=== PATIENT | female | born 1995 | race Hispanic/Latino ===

== ENCOUNTER 2019-12-11 10:20 | Observation (INO) | payer MEDICAID ==
[~2019-12-11] VITALS: Ht 147.3 cm; Wt 81.2 kg
[2019-12-11 12:23] LABS: ALBUMIN 2.5 g/dL (3.5-5.0); BILIRUBIN,DIRECT 0.1 mg/dL (0.0-0.3); BILIRUBIN,TOTAL 0.3 mg/dL (0.2-1.0)
== END 2019-12-11 12:40 | disposition home or self-care (01) ==
LOC: LDH 10:20
DX: O26.613 Liver and biliary tract disorders in pregnancy, third trimester (principal); K83.1 Obstruction of bile duct; Z88.0 Allergy status to penicillin; Z3A.35 35 weeks gestation of pregnancy
CPT/HCPCS: 36415; 59025; 76819; 80076; G0378 ×2

== ENCOUNTER 2019-12-29 09:46 | Inpatient (IN) | payer MEDICAID ==
[~2019-12-29] VITALS: Ht 147.3 cm; Wt 82.6 kg
[2019-12-29 11:05] LABS: APPEARANCE,URINE Cloudy (CLEAR); BILIRUBIN,URINE Negative (NEGATIVE); COLOR,URINE Yellow (YELLOW); GLUCOSE, URINE (UA) Negative (NEGATIVE); KETONES,URINE Negative (NEGATIVE); LEUKOCYTE ESTERASE ,URINE Moderate (NEGATIVE); NITRATE,URINE Negative (NEGATIVE); OCCULT BLOOD,URINE Negative (NEGATIVE); PROTEIN,URINE Negative (NEGATIVE)
[2019-12-29 11:22] LABS: BACTERIA,URINE Moderate /HPF (None Seen); RBC,URINE 0-1 /HPF (0-1); SQUAMOUS EPITHELIAL CELL,UR Rare /HPF (0-2)
[2019-12-29] MEDS ORDERED: LACTATED RINGERS 1000ML 1,000 ML IV SCH ×2 (11:45→14:15)
[2019-12-29] MEDS ORDERED: LACTATED RINGERS 1000ML IV SCH (11:45)
[2019-12-29] MEDS ORDERED: LACTATED RINGERS 1000ML 1,000 ML IV PRN (14:07)
[2019-12-29] MEDS ORDERED: OXYTOCIN-LR 20 UNITS/1000 ML 1,000 ML IV SCH (14:15)
[2019-12-29] MEDS ORDERED: CALDOLOR 800MG+NS 250ML 250 ML IV PRN (14:15)
[2019-12-29 18:11] LABS: HEMATOCRIT 37.4 % (36-48); MEAN CORPUSCULAR HEMOGLOBIN 28.2 pg (27.0-33.0); MEAN CORPUSCULAR HGB CONC 31.6 g/dL (32.0-36.0); MEAN CORPUSCULAR VOLUME 89.5 fL (79-99); PLATELET COUNT (AUTO) 130 K/uL (130-400); RED BLOOD CELL COUNT(AUTO) 4.18 MIL/uL (4.00-5.50); RED CELL DISTRIBUTION WIDTH 13.7 % (11.0-15.5); WHITE BLOOD COUNT (AUTO) 6.8 K/uL (4.8-10.8)
[2019-12-30] MEDS ORDERED: GENTAMICIN SULFATE 240 MG in SODIUM CHLORIDE 0.9% 100 ML IV PRN (07:00)
[2019-12-30] MEDS ORDERED: CLINDAMYCIN 900 MG/D5% WATER 50 ML IV PRN (07:00)
[2019-12-30] MEDS ORDERED: OXYTOCIN 10 USP UNITS/ML ONE (07:29)
[2019-12-30] MEDS ORDERED: DURAMORPH PF1 MG/ML 10ML AMP IV ONE (08:06)
[2019-12-30] MEDS ORDERED: GLYCOPYRROLATE 1 MG/5 ML SYRINGE ONE (09:38)
[2019-12-30] MEDS ORDERED: EPHEDRINE SULFATE 50 MG/ML AMPULE ONE (09:38)
[2019-12-30] MEDS ORDERED: ONDANSETRON HCL 4 MG/2 ML VIAL ONE ×2 (10:34→10:53)
[2019-12-30] MEDS ORDERED: DIPH,PERTUSS(ACELL),TET VAC/PF 0.5 ML VIAL IM SCH (10:45)
[2019-12-30] MEDS ORDERED: BISACODYL 10 MG SUPP.RECT RC PRN (10:45)
[2019-12-30] MEDS ORDERED: MEPERIDINE-PF 75 MG/ML SYG IM PRN (10:45)
[2019-12-30] MEDS ORDERED: DEXTROSE 5 %-0.45 % NACL 1,000 ML IV PRN (10:45)
[2019-12-30] MEDS ORDERED: SODIUM CHLORIDE 0.9% 10 ML VIAL IVP PRN (10:45)
[2019-12-30] MEDS ORDERED: LANOLIN 30GM OINTMENT TP PRN (10:45)
[2019-12-30] MEDS ORDERED: OXYTOCIN-LR 20 UNITS/1000 ML 1,000 ML IV PRN (10:45)
[2019-12-30] MEDS ORDERED: PROMETHAZINE HCL 25 MG/ML 1ML AMPULE IM PRN (10:45)
[2019-12-30] MEDS ORDERED: PROMETHAZINE HCL 25 MG/ML 1ML AMPULE IM SCH (11:30)
[2019-12-30 12:27] VITALS: BP 99/51
[2019-12-30] MEDS ORDERED: NALOXONE HCL 0.4 MG/1 ML ML IVP PRN ×2 (13:45)
[2019-12-30] MEDS ORDERED: DiphenhydrAMINE HCL 50 MG/ML VIAL IVP PRN (13:45)
[2019-12-30] MEDS ORDERED: EPHEDRINE SULFATE 50 MG/ML AMPULE IVP PRN (13:45)
[2019-12-30] MEDS ORDERED: CEFAZOLIN 3GM /D5W 100ML 100 ML IV SCH (14:00)
[2019-12-30 16:18] VITALS: BP 103/57
[2019-12-30] MEDS ORDERED: GENTAMICIN 80 MG/NS 100 ML PB 100 ML IV PRN (17:00)
[2019-12-30] MEDS: CLINDAMYCIN 900 MG/D5% WATER 50 ML IV SCH ×2 (17:08→23:28)
[2019-12-30] MEDS: GENTAMICIN 80 MG/NS 100 ML PB 100 ML IV SCH (17:50)
[2019-12-30] MEDS: ACETAMINOPHEN-CODEINE 300/30MG TAB PO PRN (18:34)
[2019-12-30] MEDS: CALDOLOR 800MG+NS 250ML 250 ML IV SCH (18:53)
[2019-12-30 19:53] VITALS: BP 105/57
[2019-12-30] MEDS: DOCUSATE SODIUM 100 MG CAP PO SCH (20:49)
[2019-12-30] MEDS: SIMETHICONE 80 MG TAB.CHEW PO PRN (20:49)
--- NOTE | 2019-12-30 21:15 | NUR ---
PATIENT ACTIVITY PATIENT ASSISTED TO DANGLE LEGS ON BED BY TRACY MCBRIDE. PATIENT STATED SHE FELT DIZZY WHILE SITTING UP. PATIENT ASSISTED BACK INTO BED. AFTER LAYING BACK IN BED PATIENT STATED SHE DID NOT FEEL DIZZY ANYMORE. PATIENT INSTRUCTED TO CALL FOR ASSISTANCE IF NEEDING ANYTHING.
[2019-12-30 23:52] VITALS: BP 96/49
[2019-12-31] MEDS: GENTAMICIN 80 MG/NS 100 ML PB 100 ML IV SCH (02:42)
[2019-12-31 03:50] VITALS: BP 100/54
[2019-12-31] MEDS: CALDOLOR 800MG+NS 250ML 250 ML IV SCH (04:25)
[2019-12-31] MEDS: CLINDAMYCIN 900 MG/D5% WATER 50 ML IV SCH (05:47)
--- NOTE | 2019-12-31 06:00 | NUR ---
CROSS CATHETER D/C CROSS CATHETER DISCONTINUED. PATIENT TOLERATED WELL. 300ML URINE EMPTIED. PATIENT INSTRUCTED TO CALL FOR ASSISTANCE WHEN NEEDING TO GET UP TO VOID.
[2019-12-31 06:55] LABS: HEMATOCRIT 28.1 % (36-48); MEAN CORPUSCULAR HEMOGLOBIN 28.4 pg (27.0-33.0); MEAN CORPUSCULAR HGB CONC 32.4 g/dL (32.0-36.0); MEAN CORPUSCULAR VOLUME 87.8 fL (79-99); PLATELET COUNT (AUTO) 107 K/uL (130-400); RED CELL DISTRIBUTION WIDTH 13.6 % (11.0-15.5); WHITE BLOOD COUNT (AUTO) 7.9 K/uL (4.8-10.8)
[2019-12-31 07:32] VITALS: BP 101/63
[2019-12-31] MEDS: DOCUSATE SODIUM 100 MG CAP PO SCH ×2 (08:21→21:09)
[2019-12-31] MEDS: SIMETHICONE 80 MG TAB.CHEW PO PRN ×2 (08:21→21:09)
[2019-12-31] MEDS: ACETAMINOPHEN-CODEINE 300/30MG TAB PO PRN ×2 (08:21→18:47)
[2019-12-31 11:28] VITALS: BP 95/52
[2019-12-31] MEDS: IBUPROFEN 800 MG TAB PO SCH ×2 (12:29→21:31)
[2019-12-31 16:12] VITALS: BP 101/54
[2019-12-31 19:38] VITALS: BP 116/74
[2019-12-31 23:54] VITALS: BP 112/70
[2020-01-01 04:06] VITALS: BP 112/70
[2020-01-01] MEDS: IBUPROFEN 800 MG TAB PO SCH (05:34)
[2020-01-01 06:59] LABS: BASOPHILS % (AUTO) 0.1 % (0.0-5.0); EOSINOPHILS % (AUTO) 1.2 % (0.0-8.0); HEMATOCRIT 32.6 % (36-48); LYMPHOCYTES % (AUTO) 20.3 % (21.0-51.0); MEAN CORPUSCULAR HEMOGLOBIN 27.8 pg (27.0-33.0); MEAN CORPUSCULAR HGB CONC 31.6 g/dL (32.0-36.0); MEAN CORPUSCULAR VOLUME 88.1 fL (79-99); MONOCYTES % (AUTO) 8.2 % (3.0-13.0); NEUTROPHILS % (AUTO) 69.9 % (40.0-77.0); PLATELET COUNT (AUTO) 152 K/uL (130-400); RED CELL DISTRIBUTION WIDTH 13.9 % (11.0-15.5)
[2020-01-01 07:13] LABS: HEPATITIS Bs ANTIGEN SCREEN P Negative (Negative)
[2020-01-01 07:29] VITALS: BP 105/43
[2020-01-01] MEDS: DOCUSATE SODIUM 100 MG CAP PO SCH (09:04)
[2020-01-01] MEDS: SIMETHICONE 80 MG TAB.CHEW PO PRN (09:04)
[2020-01-01] MEDS: ACETAMINOPHEN-CODEINE 300/30MG TAB PO PRN (09:05)
--- NOTE | 2020-01-01 12:00 | NUR ---
DISCHARGE PATIENT LEFT UNIT VIA WHEELCHAIR WITH BELONGINGS IN HAND. PERSONAL VEHICLE USED FOR TRANSPORTATION. NO COMPLAINTS OR CONCERNS ADDRESSED FROM PATIENT ON DISCHARGE.
== END 2020-01-01 12:00 | disposition home or self-care (01) | DRG 540 ==
LOC: LDH 09:46 → OBSVTOIN 09:46 → LDH 14:14 → WSH 21:52
PROVIDERS: ADMIT Specialist; ATTEND Specialist
PROC: 10D00Z1 Extraction of Products of Conception, Low, Open Approach (ICD-10-PCS; principal; 2019-12-30 08:00)
DX: O34.211 Maternal care for low transverse scar from previous cesarean delivery (principal); K83.1 Obstruction of bile duct; O26.62 Liver and biliary tract disorders in childbirth; D62 Acute posthemorrhagic anemia; O36.8330 Maternal care for abnormalities of the fetal heart rate or rhythm, third trimester, not applicable or unspecified; O69.81X0 Labor and delivery complicated by cord around neck, without compression, not applicable or unspecified; Z3A.37 37 weeks gestation of pregnancy; Z37.0 Single live birth; O99.02 Anemia complicating childbirth
CPT/HCPCS: 36415; 59510; 76819; 80170; 81001; 85025; 85027; 86592; 86850; 86900; 86901; 87340; A4344; G0378; J0690; J1200; J1580; J1741; J2274; J2405; J2550; J2590; J3490; J7120

== ENCOUNTER 2020-02-18 10:27 | Day surgery (SDC) | payer MEDICAID ==
[2020-02-18] VITALS (17 sets, daily range): BP systolic 110–136; BP diastolic 55–78
[~2020-02-18] VITALS: Ht 147.3 cm; Wt 73.0 kg
[2020-02-18 11:25] LABS: CREATININE 0.6 mg/dL (0.5-1.5); POTASSIUM 3.8 mmol/L (3.5-5.1)
[2020-02-18 11:27] LABS: BASOPHILS % (AUTO) 0.1 % (0.0-5.0); EOSINOPHILS % (AUTO) 0.9 % (0.0-8.0); HEMATOCRIT 40.2 % (36-48); LYMPHOCYTES % (AUTO) 33.6 % (21.0-51.0); MEAN CORPUSCULAR HEMOGLOBIN 26.9 pg (27.0-33.0); MEAN CORPUSCULAR HGB CONC 31.8 g/dL (32.0-36.0); MEAN CORPUSCULAR VOLUME 84.6 fL (79-99); MONOCYTES % (AUTO) 5.6 % (3.0-13.0); NEUTROPHILS % (AUTO) 59.5 % (40.0-77.0); PLATELET COUNT (AUTO) 214 K/uL (130-400); RED BLOOD CELL COUNT(AUTO) 4.75 MIL/uL (4.00-5.50); RED CELL DISTRIBUTION WIDTH 13.2 % (11.0-15.5); WHITE BLOOD COUNT (AUTO) 6.8 K/uL (4.8-10.8)
[2020-02-18 11:30] LABS: ALBUMIN 3.9 g/dL (3.5-5.0); BILIRUBIN,TOTAL 0.4 mg/dL (0.2-1.0); TOTAL PROTEIN, SERUM 7.7 g/dL (6.0-8.3)
[2020-02-18] MEDS ORDERED: LACTATED RINGERS 1000ML 1,000 ML IV ONE (11:58)
[2020-02-18] MEDS ORDERED: CLINDAMYCIN 600 MG/D5% WATER 50 ML IV ONE (12:29)
[2020-02-18] MEDS ORDERED: PROPOFOL 10 MG/ML 20ML VIAL IV ONE (12:33)
[2020-02-18] MEDS ORDERED: LIDOCAINE PF 2% 5ML ABBOJECT ONE (12:33)
[2020-02-18] MEDS ORDERED: ROCURONIUM 10MG/1ML SYR 10 MG/ML ML ONE (12:34)
[2020-02-18] MEDS ORDERED: MIDAZOLAM HCL 1 MG/ML 2ML VIAL ONE (12:34)
[2020-02-18] MEDS ORDERED: FENTANYL CITRATE PF 50 MCG/1 ML 5ML AMP IV ONE (12:34)
[2020-02-18] MEDS ORDERED: BUPIVACAINE/PF 0.5% 30ML VIAL ONE (12:56)
[2020-02-18] MEDS ORDERED: DEXAMETHASONE SOD PHOSPHATE 10MG/ML 1ML VIAL ONE (13:34)
[2020-02-18] MEDS ORDERED: ONDANSETRON HCL 4 MG/2 ML VIAL ONE (13:34)
[2020-02-18] MEDS ORDERED: NEOSTIGMINE 5MG/5ML SYR IV ONE (13:34)
[2020-02-18] MEDS ORDERED: GLYCOPYRROLATE 1 MG/5 ML SYRINGE ONE (13:34)
--- NOTE | 2020-02-18 16:00 | NUR ---
DISCHARGE PT DISCHARGED VIA WHEELCHAIR WITH FATHER. PT STABLE. NO COMPLAINTS MADE, DENIES PAIN. NO N/V, TOLERATED ICE CHIPS WELL. INCISIONS X4 TO ABDOMEN WITH DERMABOND INTACT, NO OOZING, NO BLEEDING NO DRAINAGE NOTED. ABDOMEN SOFT. DISCHARGE INSTRUCTIONS GIVEN TO MOTHER LOTUS TO VIA TELEPHONE.
== END 2020-02-18 16:00 | disposition home or self-care (01) ==
LOC: DAH 10:27
PROVIDERS: ATTEND Student in an Organized Health Care Education/Training Program
DX: K80.10 Calculus of gallbladder with chronic cholecystitis without obstruction (principal); Z88.0 Allergy status to penicillin
CPT/HCPCS: 36415; 47562; 80053; 84703; 85025; A4215; A4221; A4222; A4223; A4649 ×3; A4663; A4930; A6206; A6207; C1769 ×3; G0168; J1100; J2001; J2250; J2405; J2704; J2710; J3010; J3490 ×3; J7030; J7120